=== PATIENT | female | born 1995 | race Caucasian/White ===

== ENCOUNTER 2021-12-02 12:02 | Inpatient (IN) ==
[2021-12-02] MEDS ORDERED: Naloxone 0.4 MG/ML INJ IVP PRN (12:20)
[2021-12-02] MEDS ORDERED: Famotidine 20 MG/2 ML VIAL IVP PRN (12:20)
[2021-12-02] MEDS ORDERED: Lidocaine 1% 20 ML MDV INFILT PRN (12:20)
[2021-12-02] MEDS ORDERED: Metoclopramide 10 MG/2 ML VIAL IVP PRN (12:20)
[2021-12-02] MEDS ORDERED: miSOPROStoL 25 MCG TABLET VG PRN (12:20)
[2021-12-02 14:13] LABS: Basophils % 0.5 %; Eosinophils # 0.1 K/mcL (0.0-0.6); Eosinophils % 0.7 %; Hematocrit 36.2 % (35.3-44.9); Hemoglobin 12.2 g/dL (11.5-15.4); Immature Granulocytes % 0.5 % (0-4); Lymphocytes # 1.7 K/mcL (0.6-4.6); Lymphocytes % 19.5 %; Mean Corpuscular HGB Conc 33.7 g/dL (31.6-35.5); Monocytes # 0.6 K/mcL (0.0-1.3); Monocytes % 7.3 %; Neutrophils # 6.1 K/mcL (1.6-8.9); Platelet Count 220 K/mcL (140-400); Red Blood Count 4.36 M/mcL (3.82-4.97); Red Cell Distribution Width 12.5 % (11.5-14.5); Segmented Neutrophils % 71.5 %; White Blood Count 8.6 K/mcL (4.3-11.1)
[2021-12-02 14:24] LABS: Amphetamine Screen,Urine Negative ng/mL (Cutoff=1000); Barbiturate Screen,Urine Negative ng/mL (Cutoff=200); Benzodiazepines Screen,Urine Negative ng/mL (Cutoff=200); Cannabinoid Screen,Urine Negative ng/mL (Cutoff = 50); Cocaine Screen,Urine Negative ng/mL (Cutoff= 300); Opiate Screen,Urine Negative ng/mL (Cutoff=300); Phencyclidine Screen,Urine Negative ng/mL (Cutoff=25)
[2021-12-02 14:27] LABS: Influenza A PCR Negative (Negative); Influenza B PCR Negative (Negative); Resp. Syncytial Virus PCR Negative (Negative)
[2021-12-02 14:29] LABS: SARS-CoV-2 by PCR (In House) Negative (Negative)
[2021-12-02] MEDS ORDERED: *HR* FentaNYL (PF) 100 MCG/2 ML VIAL EP ONE (15:11)
[2021-12-02] MEDS ORDERED: EPHEDrine 50 MG/ML VIAL IVP PRN (15:11)
[2021-12-02] MEDS ORDERED: Ropivacaine/PF 0.2% 20 ML VIAL EP ONE (15:11)
[2021-12-02] MEDS ORDERED: Epidural Premix (fent/bupiv) 110 ML EP SCH (15:15)
[2021-12-02] MEDS ORDERED: miSOPROStoL 25 MCG TABLET PO PRN (18:57)
[2021-12-02] MEDS: *HR* Nalbuphine 10 MG/ML AMPUL IV PRN ×2 (19:24→23:09)
[2021-12-02] MEDS: Ringers Solution, Lactated 1,000 ML IVC SCH (19:24)
[2021-12-02] MEDS: Oxytocin 30 UNIT/503 ML BAG IVC SCH (23:20)
[2021-12-03] MEDS ORDERED: *HR* FentaNYL (PF) 100 MCG/2 ML VIAL ONE (00:25)
[2021-12-03] MEDS ORDERED: Ropivacaine/PF 0.2% 20 ML VIAL ONE (00:25)
[2021-12-03] MEDS: Ringers Solution, Lactated 1,000 ML IVC SCH ×2 (00:50→04:47)
[2021-12-03] MEDS ORDERED: 0.9 % Sodium Chloride 1,000 ML ONE (01:38)
[2021-12-03] MEDS ORDERED: Ondansetron 4 MG/2 ML VIAL ONE (04:41)
[2021-12-03] MEDS ORDERED: Ondansetron 4 MG/2 ML VIAL IVP PRN (04:46)
[2021-12-03] MEDS ORDERED: Rho Immune Globulin 1,500 UNIT SYRINGE IM PRN (09:32)
[2021-12-03] MEDS ORDERED: OXYTOCIN/RINGERS LACTATE 10 UNIT/166.6 ML BAG IVC ONE (09:32)
[2021-12-03] MEDS ORDERED: Ondansetron ODT 4 MG TAB.RAPDIS SL PRN (09:32)
[2021-12-03] MEDS ORDERED: Benzocaine/Menthol 56 GM AEROSOL SPRAY TP PRN (09:32)
[2021-12-03] MEDS ORDERED: Measles/Mumps/Rubella Vacc 0.5 ML VIAL SQ PRN (09:32)
[2021-12-03] MEDS ORDERED: Lanolin 7 G OINT...G. TP PRN (09:32)
[2021-12-03] MEDS: Prenatal Vit/FA 1 EACH TABLET PO SCH (10:55)
[2021-12-03] MEDS: Ibuprofen 600 MG TABLET PO SCH ×2 (10:55→20:05)
[2021-12-03] MEDS: Acetaminophen 325 MG TABLET PO SCH ×2 (10:55→20:05)
[2021-12-03] MEDS: Oxytocin 30 UNIT/503 ML BAG IVC SCH (12:06)
[2021-12-03] MEDS ORDERED: Oxytocin 30 UNIT/503 ML BAG IVC SCH (12:15)
[2021-12-03] MEDS: *HR* OxyCODONE Immed Rel 5 MG TABLET PO PRN (23:56)
[2021-12-04 04:51] LABS: Basophils % 0.3 %; Eosinophils # 0.1 K/mcL (0.0-0.6); Eosinophils % 0.9 %; Hematocrit 29.4 % (35.3-44.9); Immature Granulocytes % 0.5 % (0-4); Lymphocytes # 1.9 K/mcL (0.6-4.6); Lymphocytes % 19.2 %; Mean Corpuscular HGB Conc 33.3 g/dL (31.6-35.5); Mean Corpuscular Hemoglobin 27.9 pg (28.0-33.3); Mean Corpuscular Volume 83.8 fL (83.0-100.0); Mean Platelet Volume 11.7 fL (9.4-12.4); Monocytes # 0.8 K/mcL (0.0-1.3); Platelet Count 162 K/mcL (140-400); Red Blood Count 3.51 M/mcL (3.82-4.97); Red Cell Distribution Width 12.8 % (11.5-14.5); Segmented Neutrophils % 71.1 %; White Blood Count 9.9 K/mcL (4.3-11.1)
[2021-12-04 04:55] LABS: Hemoglobin 9.8 g/dL (11.5-15.4)
[2021-12-04] MEDS: Acetaminophen 325 MG TABLET PO SCH ×3 (09:20→23:18)
[2021-12-04] MEDS: Prenatal Vit/FA 1 EACH TABLET PO SCH (09:20)
[2021-12-04] MEDS: Ibuprofen 600 MG TABLET PO SCH ×3 (09:20→23:17)
[2021-12-05] MEDS: Acetaminophen 325 MG TABLET PO SCH (05:53)
[2021-12-05] MEDS: Ibuprofen 600 MG TABLET PO SCH (05:54)
[2021-12-05 06:53] VITALS: BP 125/76; PULSE 90; TEMP 98.1; O2SAT 96
[2021-12-05] MEDS: *HR* OxyCODONE Immed Rel 5 MG TABLET PO PRN (09:35)
[2021-12-05] MEDS: Prenatal Vit/FA 1 EACH TABLET PO SCH (09:35)
== END 2021-12-05 10:48 | disposition home or self-care (01) | DRG 807 ==
LOC: 1NENULAB 12:02 → 1NENUOBS 12-03 09:31
PROVIDERS: ADMIT Obstetrics & Gynecology; ATTEND Obstetrics & Gynecology